=== PATIENT | female | born 1980 | race African-American/Black ===

== ENCOUNTER 2021-10-18 18:53 | Emergency (ER) | payer MEDICAID, SELFPAY ==
[2021-10-18 18:55] VITALS: BP 154/97; PULSE 111; RESP 17; TEMP 36.7; O2SAT 100; BMI 33.3
[2021-10-18 19:06] VITALS: BP 152/102; PULSE 94; RESP 18; TEMP 36.4; O2SAT 96
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
--- NOTE | 2021-10-18 19:47 | ED.RN ---
PATIENT REFUSING BLOOD WORK AND URINE SAMPLE AT THIS TIME. [facility] @ BEDSIDE
[2021-10-18 20:40] LABS: Absolute Lymphocyte Count 1.71 X10^3/uL (0.83-4.51); Absolute Neutrophil Count 6.5 X10^3/uL (2.0-7.7); Basophil# 0.05 X10^3/uL; Basophil% 0.6 % (0-1); Eosinophil# 0.01 X10^3/uL; Eosinophils% 0.1 % (0-5); Hemoglobin 12.3 g/dL (12.0-15.0); Lymphocyte # 1.71 X10^3/ul (0.83-4.51); Lymphocyte % 20.1 % (19-41); Mean Corp Hgb Conc 32.4 g/dL (32-36); Mean Corpuscular Hgb 28.1 pg (27.0-32.0); Mean Corpuscular Volume 86.8 fL (81-99); Mean Platelet Vol. 10.7 fl (6.2-12.0); Monocyte# 0.26 X10^3/uL; Monocyte% 3.1 % (0-10); NRBC Flagged by Analyzer 0 % (0-5); Neutrophil # 6.45 X10^3/uL (2.7-7.7); Neutrophil % 75.9 % (47-70); Platelet Count 222 K/mm3 (150-450); Red Blood Count 4.38 M/mm3 (4.2-5.4); White Blood Count 8.5 K/mm3 (4.4-11.0)
[2021-10-18 20:56] LABS: ALB/GLOB Ratio 0.9 RATIO (0.9-2.4); AST(SGOT) 25 U/L (15-37); Alanine Aminotransfer ALT/SGPT 19 U/L (13-56); Albumin, Serum 3.9 g/dL (3.2-5.0); Alkaline Phosphatase 47 U/L (45-117); Anion Gap 8 (5-15); BUN 14 mg/dL (7-18); BUN/Creat Ratio 15.9 RATIO (10-20); Calcium,Total 8.6 mg/dL (8.5-10.1); Chloride 112 mmol/L (98-107); Creatinine, Serum 0.88 mg/dL (0.55-1.02); EST Glomerular Filtration Rate 75 mL/min (>60); Est Glom Filt Rate - Afr Amer 90 mL/min (>60); Estimated Creatinine Clearance 68.89 ml/min; Globulin 4.2 g/dL (2.2-4.2); Glucose 93 mg/dL (74-106); Potassium 3.6 mmol/L (3.5-5.1); Protein, Total 8.1 g/dL (6.4-8.2); Sodium Level 147 mmol/L (136-145)
[2021-10-18 21:00] VITALS: RESP 15
[2021-10-18 21:42] VITALS: BP 154/94; PULSE 115; RESP 15; O2SAT 99
== END 2021-10-18 21:44 ==
PROVIDERS: Emergency Provider Emergency Medicine; Visit Provider Emergency Medicine
DX: F10.129 Alcohol abuse with intoxication, unspecified (principal)
CPT/HCPCS: 36415; 80053; 82077; 85025; 99284

== ENCOUNTER → 2021-10-18 20:02 | Outpatient (REF) | payer SELFPAY | END | disposition home or self-care (01) | LOC: ED 20:02 | DX: Z00.00 Encounter for general adult medical examination without abnormal findings (principal) ==